=== PATIENT | male | born 1935 | race Caucasian/White ===

== ENCOUNTER 2016-12-20 07:08 | Emergency (ER) | payer MEDICARE, BC ==
[2016-12-20] MEDS ORDERED: Sodium Chloride 0.9% 500 ML IV SCH (07:30)
--- NOTE | 2016-12-20 07:31 | EDM.PDOC ---
ED HPI GENERAL MEDICAL PROBLEM - General Chief Complaint: Abdominal Pain Stated Complaint: SIDE PAIN Time Seen by Provider: 12/20/16 07:30 Source of Information: Reports: Patient - History of Present Illness INITIAL COMMENTS - FREE TEXT/NARRATIVE: HISTORY AND PHYSICAL: History of present illness: [] Patient presents with low-grade left lower quadrant pain 2/10 nonradiating for one week, associated with fever nausea vomiting chills sweats no chest pain shortness breath headache dizziness or palpitation no bowel or urine symptoms Denies blood in the stool Last colonoscopy 4 years prior without findings Review of systems: As per history of present illness and below otherwise all systems reviewed and negative. Past medical history: As per history of present illness and as reviewed below otherwise noncontributory. Surgical history: As per history of present illness and as reviewed below otherwise noncontributory. Social history: No reported history of drug or alcohol abuse. Family history: As per history of present illness and as reviewed below otherwise noncontributory. Physical exam: HEENT: Atraumatic, normocephalic, pupils reactive, negative for conjunctival pallor or scleral icterus, mucous membranes moist, throat clear, neck supple, nontender, trachea midline. Lungs: Clear to auscultation, breath sounds equal bilaterally, chest nontender. Heart: S1S2, regular, negative for clicks, rubs, or JVD. Abdomen: Soft, nondistended, nontender. Negative for masses or hepatosplenomegaly. Negative for costovertebral tenderness. Pelvis: Stable nontender. Genitourinary: Deferred. Rectal: No mass scar or lesion external exam, internal exam again no mass scarred lesion guaiac is negative Extremities: Atraumatic, negative for cords or calf pain. Neurovascular unremarkable. Neuro: Awake, alert, oriented. Cranial nerves II through XII unremarkable. Cerebellum unremarkable. Motor and sensory unremarkable throughout. Exam nonfocal. Diagnostics: [] Lab as below CT abdomen pelvis with Guaiac-negative Therapeutics: [] 500 cc bolus normal saline Cipro 500 mg by mouth twice a day #20 no refill Impression: [] Nonspecific Abdominal pain, left lower quadrant Clinical diverticulitis Definitive disposition and diagnosis as appropriate pending reevaluation and review of above. abdomen Pain Score (Numeric/FACES): 2 - Related Data Allergies Allergy/AdvReac Type Severity Reaction Status Date / Time No Known Allergies Allergy Verified 12/20/16 07:17 Home Meds: Home Meds Hydrochlorothiazide 12.5 mg PO DAILY 03/16/15 [History] Lisinopril 10 mg PO DAILY 03/16/15 [History] Sertraline HCl [Zoloft] 100 mg PO DAILY 03/16/15 [History] Tadalafil [Cialis] 20 mg PO ASDIRECTED PRN 03/16/15 [History] Tamsulosin HCl [Flomax] 0.4 mg PO DAILY 03/16/15 [History] Past Medical History Other HEENT History: wears glasses Other Genitourinary History: Prostate hypertrophy - Past Surgical History Other Musculoskeletal Surgeries/Procedures:: melodie TKA Social & Family History - Tobacco Use Smoking Status *Q: Never Smoker - Recreational Drug Use Recreational Drug Use: No ED ROS GENERAL - Review of Systems Review Of Systems: ROS reveals no pertinent complaints other than HPI. ED EXAM, GENERAL - Physical Exam Exam: See Below Course - Vital Signs Last Recorded V/S: Last Vital Signs Temp 36.0 C 12/20/16 08:43 Pulse 51 L 12/20/16 08:43 Resp 14 12/20/16 08:43 BP 156/69 H 12/20/16 08:43 Pulse Ox 96 12/20/16 08:43 - Orders/Labs/Meds Orders: Active Orders 24 hr Category Date Time Status Abdomen Pelvis w Cont [CT] Stat Exams 12/20/16 07:29 Taken Guaiac [OCCULT BLOOD DIAGNOSTIC] [OP] Stat Lab 12/20/16 08:25 Uncollected Sodium Chloride 0.9% [Normal Saline] 500 ml Med 12/20/16 07:30 Active IV STAT Medication Orders Sodium Chloride (Normal Saline) 500 mls @ 999 mls/hr IV STAT RAMIRO Last Admin: 12/20/16 07:55 Dose: 999 mls/hr Labs: Laboratory Tests 12/20/16 12/20/16 12/20/16 Range/Units 06:30 07:21 07:51 WBC 4.06 (4.0-11.0) K/uL RBC 3.97 L (4.50-5.90) M/uL Hgb 12.1 L (13.0-17.0) g/dL Hct 37.8 L (38.0-50.0) % MCV 95.2 (80.0-98.0) fL MCH 30.5 (27.0-32.0) pg MCHC 32.0 (31.0-37.0) g/dL RDW Std Deviation 53.0 (28.0-62.0) fl RDW Coeff of Sherine 15 (11.0-15.0) % Plt Count 151 (150-400) K/uL MPV 10.10 (7.40-12.00) fL Neut % (Auto) 64.8 (48.0-80.0) % Lymph % (Auto) 24.4 (16.0-40.0) % [place] % (Auto) 6.4 (0.0-15.0) % Eos % (Auto) 3.4 (0.0-7.0) % Baso % (Auto) 1.0 (0.0-1.5) % Neut # (Auto) 2.6 (1.4-5.7) K/uL Lymph # (Auto) 1.0 (0.6-2.4) K/uL [place] # (Auto) 0.3 (0.0-0.8) K/uL Eos # (Auto) 0.1 (0.0-0.7) K/uL Baso # (Auto) 0.0 (0.0-0.1) K/uL Nucleated RBC % 0.0 /100WBC Nucleated RBCs # 0 K/uL Sodium (136-146) mmol/L Potassium (3.5-5.1) mmol/L Chloride (98-110) mmol/L Carbon Dioxide (21-31) mmol/L BUN (6.0-23.0) mg/dL Creatinine (0.6-1.5) mg/dL Est Cr Clr Drug Dosing mL/min Estimated GFR (MDRD) ml/min Glucose (60-110) mg/dL Calcium (8.8-10.8) mg/dL Total Bilirubin (0.1-1.5) mg/dL AST (5-40) IU/L ALT (8-54) IU/L Alkaline Phosphatase (40-150) Troponin I < 0.10 (0.0-0.29) NG/ML C-Reactive Protein (0.0-0.5) mg/dL Total Protein (6.0-8.0) g/dL Albumin (3.4-4.8) g/dL Globulin (2.0-3.5) g/dL Albumin/Globulin Ratio (1.3-2.8) Amylase (10-90) U/L Lipase (7-80) U/L Urine Color YELLOW Urine Appearance CLEAR Urine pH 5.5 (5.0-8.0) Ur Specific [place] 1.020 (1.001-1.035) Urine Protein NEGATIVE (NEGATIVE) mg/dL Urine Glucose (UA) NEGATIVE (NEGATIVE) mg/dL Urine Ketones NEGATIVE (NEGATIVE) mg/dL Urine Occult Blood NEGATIVE (NEGATIVE) Urine Nitrite NEGATIVE (NEGATIVE) Urine Bilirubin NEGATIVE (NEGATIVE) Urine Urobilinogen 0.2 (<2.0) EU/dL Ur Leukocyte Esterase NEGATIVE (NEGATIVE) Urine RBC 0-1 (0-2/HPF) Urine WBC 0-1 (0-5/HPF) Ur Squamous Epith Cells FEW Urine Bacteria NOT SEEN (NEGATIVE) Hyaline Casts 0-2 (0-2/LPF) Urine Mucus LIGHT (NONE-MOD) 12/20/16 12/20/16 Range/Units 07:51 07:51 WBC (4.0-11.0) K/uL RBC (4.50-5.90) M/uL Hgb (13.0-17.0) g/dL Hct (38.0-50.0) % MCV (80.0-98.0) fL MCH (27.0-32.0) pg MCHC (31.0-37.0) g/dL RDW Std Deviation (28.0-62.0) fl RDW Coeff of Sherine (11.0-15.0) % Plt Count (150-400) K/uL MPV (7.40-12.00) fL Neut % (Auto) (48.0-80.0) % Lymph % (Auto) (16.0-40.0) % [place] % (Auto) (0.0-15.0) % Eos % (Auto) (0.0-7.0) % Baso % (Auto) (0.0-1.5) % Neut # (Auto) (1.4-5.7) K/uL Lymph # (Auto) (0.6-2.4) K/uL [place] # (Auto) (0.0-0.8) K/uL Eos # (Auto) (0.0-0.7) K/uL Baso # (Auto) (0.0-0.1) K/uL Nucleated RBC % /100WBC Nucleated RBCs # K/uL Sodium 139 (136-146) mmol/L Potassium 4.2 (3.5-5.1) mmol/L Chloride 108 (98-110) mmol/L Carbon Dioxide 24 (21-31) mmol/L BUN 20 (6.0-23.0) mg/dL Creatinine 1.2 (0.6-1.5) mg/dL Est Cr Clr Drug Dosing 56.72 mL/min Estimated GFR (MDRD) 58.0 ml/min Glucose 101 (60-110) mg/dL Calcium 8.9 (8.8-10.8) mg/dL Total Bilirubin 1.2 (0.1-1.5) mg/dL AST 14 (5-40) IU/L ALT 13 (8-54) IU/L Alkaline Phosphatase 72 (40-150) Troponin I (0.0-0.29) NG/ML C-Reactive Protein 0.36 (0.0-0.5) mg/dL Total Protein 6.3 (6.0-8.0) g/dL Albumin 3.7 (3.4-4.8) g/dL Globulin 2.6 (2.0-3.5) g/dL Albumin/Globulin Ratio 1.4 (1.3-2.8) Amylase 56 (10-90) U/L Lipase 33 (7-80) U/L Urine Color Urine Appearance Urine pH (5.0-8.0) Ur Specific [place] (1.001-1.035) Urine Protein (NEGATIVE) mg/dL Urine Glucose (UA) (NEGATIVE) mg/dL Urine Ketones (NEGATIVE) mg/dL Urine Occult Blood (NEGATIVE) Urine Nitrite (NEGATIVE) Urine Bilirubin (NEGATIVE) Urine Urobilinogen (<2.0) EU/dL Ur Leukocyte Esterase (NEGATIVE) Urine RBC (0-2/HPF) Urine WBC (0-5/HPF) Ur Squamous Epith Cells Urine Bacteria (NEGATIVE) Hyaline Casts (0-2/LPF) Urine Mucus (NONE-MOD) Meds: Medications Generic Name Dose Route Start Last Admin Trade Name Freq PRN Reason Stop Dose Admin Sodium Chloride 500 mls @ 999 mls/hr 12/20/16 07:30 12/20/16 07:55 Normal Saline IV 999 mls/hr STAT RAMIRO Administration Discontinued Medications Generic Name Dose Route Start Last Admin Trade Name Freq PRN Reason Stop Dose Admin Iopamidol 100 ml 12/20/16 08:26 12/20/16 08:36 Isovue Multipack-370 (76%) IVPUSH 12/20/16 08:27 100 ml ONETIME STA Administration Departure - Departure Time of Disposition: 09:13 Disposition: Home, Self-Care 01 Condition: good Clinical Impression: Abdominal pain Referrals: Corey Archuleta MD [Primary Care Provider] - Forms: ED Department Discharge Additional Instructions: Return if symptoms persist or worsen Medications as prescribed Followup with primary care in 2 weeks The following information is given to patients seen in the emergency department who are being discharged to home. This information is to outline your options for follow-up care. We provide all patients seen in our emergency department with a follow-up referral. The need for follow-up, as well as the timing and circumstances, are variable depending upon the specifics of your emergency department visit. If you don't have a primary care physician on staff, we will provide you with a referral. We always advise you to contact your personal physician following an emergency department visit to inform them of the circumstance of the visit and for follow-up with them and/or the need for any referrals to a consulting specialist. The emergency department will also refer you to a specialist when appropriate. This referral assures that you have the opportunity for follow-up care with a specialist. All of these measure are taken in an effort to provide you with optimal care, which includes your follow-up. Under all circumstances we always encourage you to contact your private physician who remains a resource for coordinating your care. When calling for follow-up care, please make the office aware that this follow-up is from your recent emergency room visit. If for any reason you are refused follow-up, please contact the [facility] emergency department at and asked to speak to the emergency department charge nurse. - My Orders Last 24 Hours: My Active Orders 12/20/16 07:29 Abdomen Pelvis w Cont [CT] Stat 12/20/16 07:30 Sodium Chloride 0.9% [Normal Saline] 500 ml IV STAT 12/20/16 08:25 Guaiac [OCCULT BLOOD DIAGNOSTIC] [OP] Stat - Assessment/Plan Last 24 Hours: My Active Orders 12/20/16 07:29 Abdomen Pelvis w Cont [CT] Stat 12/20/16 07:30 Sodium Chloride 0.9% [Normal Saline] 500 ml IV STAT 12/20/16 08:25 Guaiac [OCCULT BLOOD DIAGNOSTIC] [OP] Stat
[2016-12-20] MEDS ORDERED: Iopamidol 755 MG/ML 500 ML Multipack Bottle IVPUSH STA (08:26)
[2016-12-20 09:50] VITALS: BP 154/62
--- NOTE | 2016-12-20 16:00 | CT ---
EXAM DATE: 12/20/16 PATIENT'S AGE: 81 Patient: ILDA TELLES Facility: [place], [place] Site . Site : [id number] Study: CT Abdomen/Pelvis [id number]/[id number] 8:53:04 AM Ordering Physician: Yon Jett Final Report: INDICATION: LLQ pain HISTORY: Left lower quadrant abdominal pain. COMPARISON: None. TECHNIQUE: CT of the abdomen and pelvis. 100 cc of Isovue-370 IV. Coronal/sagittal reconstruction images. FINDINGS: Lung bases: There is no pleural or pericardial effusion. The heart size is normal. Lung bases demonstrate ground-glass opacities in both lower lobes, likely dependent atelectasis. 2 mm pulmonary nodule in the right lower lobe on image 4, series 201, is of doubtful significance. No honeycomb formation. No basilar pneumothorax. Abdomen/pelvis: No solid hepatic mass. Hepatic morphology is normal. No inflammatory changes about the gallbladder. No adrenal mass. Mild perinephric stranding. No solid renal mass. Spleen size is normal. No pancreatic mass or pancreatic duct dilation. No glandular atrophy. Urinary bladder and prostate are within normal limits. There is no wall thickening within the small bowel or colon. There is colonic diverticulosis. No associated inflammatory changes. No small bowel or colonic obstruction. No abdominal aortic aneurysm. Visceral artery branches are patent. Nonenlarged retroperitoneal lymph nodes. There is no abdominal or pelvic lymphadenopathy by size criteria. The bone windows demonstrate no lytic or blastic bone lesions. The alignment is preserved. There are degenerative changes at the endplates, and apophyseal joints. IMPRESSION: 1. There are no acute findings seen to explain the patient`s abdominal pain. 2. There is colonic diverticulosis, but no inflammatory changes. No perienteric edema, mucosal hyper enhancement, or mural stratification. 3. There is no obstructive urolith, hydronephrosis, or perinephric fluid collection. 4. No abdominal or pelvic lymphadenopathy. 5. No inflammatory changes about the appendix. Dictated by Donato Bear MD @ 12/20/2016 9:07:35 AM Dictated by: Donato Bear MD @ 12/20/2016 09:07:47 (Electronic Signature) Report Signed by Proxy. GRE[facility] HEALTH SYSTEMJamar
== END 2016-12-20 09:40 | disposition home or self-care (01) ==
LOC: MW.ED 07:08
DX: K57.30 Diverticulosis of large intestine without perforation or abscess without bleeding (principal); N40.0 Benign prostatic hyperplasia without lower urinary tract symptoms; Z96.653 Presence of artificial knee joint, bilateral; Z79.899 Other long term (current) drug therapy
CPT/HCPCS: 36415; 74177; 80053; 81001; 82150; 83690; 84484; 85025; 86140; 96360; 99284; J7040; Q9967; 99283

== ENCOUNTER 2021-05-28 15:22 | Emergency (ER) | payer MEDICARE, BC ==
[2021-05-28] MEDS ORDERED: Diphtheria,Pertussis(Acell),Tetanus Vaccine 0.5 ML Syringe IM ONE (18:12)
--- NOTE | 2021-05-28 18:45 | EDM.PDOC ---
ED HPI GENERAL MEDICAL PROBLEM - General Chief Complaint: Laceration Stated Complaint: CUT FINGER ON RIGHT HAND Time Seen by Provider: 05/28/21 17:42 Source of Information: Reports: Patient History Limitations: Reports: No Limitations - History of Present Illness INITIAL COMMENTS - FREE TEXT/NARRATIVE: HISTORY AND PHYSICAL: History of present illness: Patient is an 85-year-old male who presents emergency room today with concern of an abrasion to his right hand pointer finger that he states he cannot get to stop bleeding. Patient states that he is on Eliquis for atrial fibrillation and states that this is why he is having a hard time getting it to stop. Patient states that he is applied pressure to the area and held it over his head but has not been able to get it to stop. Patient states that he was using a cheese grater and caught the tip of his finger and sliced off a small piece of skin. Patient states that he is not up-to-date on tetanus and would like to update this today. Denies any other symptoms or concerns. Patient denies fever, chills, chest pain, shortness of breath, or cough. Denies headache, neck stiff ness, change in vision, syncope, or near syncope. Denies nausea, vomiting, abdominal pain, diarrhea, constipation, or dysuria. Has not noted any blood in urine or stool. Patient has been eating and drinking appropriately. Review of systems: As per history of present illness and below otherwise all systems reviewed and negative. Past medical history: As per history of present illness and as reviewed below otherwise noncontributory. Surgical history: As per history of present illness and as reviewed below otherwise noncontributory. Social history: See social history for further information Family history: As per history of present illness and as reviewed below otherwise noncontributory. Physical exam: General: Patient is alert, oriented, and in no acute distress. Patient sitting comfortably on exam table. Vitals stable and reviewed by me. HEENT: Atraumatic, normocephalic, pupils equal and reactive bilaterally, negative for conjunctival pallor or scleral icterus, mucous membranes moist, TMs normal bilaterally, throat clear, neck supple, nontender, trachea midline. No drooling or trismus noted. No meningeal signs. No hot potato voice noted. Lungs: Clear to auscultation, breath sounds equal bilaterally, chest nontender. Heart: S1S2, regular rate and rhythm without overt murmur Abdomen: Soft, nondistended, nontender. Negative for masses or hepatosplenomegaly. Negative for costovertebral tenderness. Pelvis: Stable nontender. Genitourinary: Deferred. Rectal: Deferred. Skin: Intact, warm, dry. No lesions or rashes noted. Extremities: There is a subcutaneous abrasion of the right hand distal pointer finger with oozing of blood noted. Patient does have full range of motion of the finger without deficit. Intact sensation to light and deep touch of the digit and complete right upper extremity. Radial pulse grossly intact with capillary refill less than 2 seconds. Otherwise, atraumatic, negative for cords or calf pain. Neurovascular unremarkable. Neuro: Awake, alert, oriented. Cranial nerves II through XII unremarkable. Cerebellum unremarkable. Motor and sensory unremarkable throughout. Exam nonfocal. Notes: Patient is hypertensive today in the emergency room. I did offer basic lab work to assess for his blood pressure, however, he declines at this time stating that he feels anxious and feels his blood pressure elevation is related to this. All risks versus benefits discussed with patient and expresses understanding. Patient is an 85-year-old male who presents emergency room today with concern of right hand pointer finger injury that occurred just prior to arrival to the emergency room. Upon arrival to the ED, patient is hypertensive, otherwise vitally stable and reviewed by me. On exam, patient does have a subcutaneous abrasion of missing skin of his right hand still pointer finger that is continually oozing blood. A finger tourniquet was applied to completely assess the abrasion. There is no arterial bleed, however, the area of missing skin does have capillaries that are continuing ooze. A Surgicel pressure dressing was originally applied to the area, however, patient bled through the bandage. Patient's incision was then soaked in TXA, however, this did not slow the bl eeding. 1Cc of lidocaine used to anesthetize the area, saline irrigation and chlorhexidine used to clean the wound, then Electrocautery was used with hemostasis. Sterile dressing applied by nursing staff. Reevaluation of the bandage shows no continuing bleeding. Strict return precautions thoroughly discussed with patient. Discussed importance for follow-up with a primary care provider. Voices understanding and is agreeable to plan of care. Denies any further questions or concerns at this time. Diagnostics: None Therapeutics: Tdap, Surgicel pressure dressing, TXA, electrocautery Prescription: None Impression: Finger abrasion with hemorrhage, right, second digit Plan: 1. Follow-up with a primary care provider as discussed. Return to the ED as needed and as discussed. Definitive disposition and diagnosis as appropriate pending reevaluation and review of above. Right Finger-Index Pain Score (Numeric/FACES): 2 - Related Data Allergies Allergy/AdvReac Type Severity Reaction Status Date / Time No Known Allergies Allergy Verified 05/28/21 17:48 Home Meds: Home Meds Hydrochlorothiazide 12.5 mg PO DAILY 03/16/15 [History] Lisinopril 10 mg PO DAILY 03/16/15 [History] Sertraline HCl [Zoloft] 100 mg PO DAILY 03/16/15 [History] Tamsulosin HCl [Flomax] 0.4 mg PO DAILY 03/16/15 [History] tadalafiL [Cialis] 20 mg PO ASDIRECTED PRN 03/16/15 [History] Past Medical History HEENT History: Reports: Cataract Other HEENT History: wears glasses Cardiovascular History: Reports: Hypertension Other Genitourinary History: Prostate hypertrophy Musculoskeletal History: Reports: Osteoarthritis Neurological History: Reports: Vertigo Psychiatric History: Reports: Depression Endocrine/Metabolic History: Reports: Obesity/BMI 30+ - Infectious Disease History Infectious Disease History: Reports: Chicken Pox, Measles - Past Surgical History Musculoskeletal Surgical History: Reports: Knee Replacement Other Musculoskeletal Surgeries/Procedures:: melodie TKA Social & Family History - Family History Family Medical History: No Pertinent Family History - Tobacco Use Tobacco Use Status *Q: Never Tobacco User - Caffeine Use Caffeine Use: Reports: None - Recreational Drug Use Recreational Drug Use: No ED ROS GENERAL - Review of Systems Review Of Systems: Comprehensive ROS is negative, except as noted in HPI. ED EXAM, SKIN/RASH Exam: See Below (See dictation) Course - Vital Signs Last Recorded V/S: Last Vital Signs Temp 97.8 F 05/28/21 17:51 Pulse 53 L 05/28/21 18:57 Resp 20 05/28/21 18:57 BP 214/76 H 05/28/21 18:57 Pulse Ox 97 05/28/21 18:57 - Orders/Labs/Meds Meds: Medications Discontinued Medications Generic Name Dose Route Start Last Admin Trade Name Coretta PRN Reason Stop Dose Admin Diphtheria/Tetanus/Acell Pertussis 0.5 ml 05/28/21 18:12 05/28/21 18:38 Diphtheria,Pertussis(Acell),Tetanus Vaccine 0.5 Ml Syringe IM 05/28/21 18:13 0.5 ml .ONCE ONE Administration Lidocaine HCl 5 ml 05/28/21 19:00 05/28/21 19:17 Lidocaine 1% 5 Ml Sdv INJECT 05/28/21 19:01 5 ml ONETIME ONE Administration Lidocaine HCl Confirm 05/28/21 19:02 05/28/21 19:17 Lidocaine 1% 5 Ml Sdv Administered 05/28/21 19:03 Not Given Dose 5 ml .ROUTE .STK-MED ONE Tranexamic Acid 1,000 mg 05/28/21 18:13 05/28/21 18:38 Tranexamic Acid 1,000 Mg/10 Ml Amp TOP 05/28/21 18:22 1,000 mg ONETIME ONE Administration Departure - Departure Time of Disposition: 18:44 Disposition: Home, Self-Care 01 Clinical Impression: Finger abrasion, Bleeding from wound - Discharge Information Instructions: Abrasion, [id number] Referrals: Corey Archuleta MD [Primary Care Provider] - Forms: ED Department Discharge Additional Instructions: The following information is given to patients seen in the emergency department who are being discharged to home. This information is to outline your options for follow-up care. We provide all patients seen in our emergency department with a follow-up referral. The need for follow-up, as well as the timing and circumstances, are variable depending upon the specifics of your emergency department visit. If you don't have a primary care physician on staff, we will provide you with a referral. We always advise you to contact your personal physician following an emergency department visit to inform them of the circumstance of the visit and for follow-up with them and/or the need for any referrals to a consulting specialist. The emergency department will also refer you to a specialist when appropriate. This referral assures that you have the opportunity for follow-up care with a specialist. All of these measure are taken in an effort to provide you with optimal care, which includes your follow-up. Under all circumstances we always encourage you to contact your private physician who remains a resource for coordinating your care. When calling for follow-up care, please make the office aware that this follow-up is from your recent emergency room visit. If for any reason you are refused follow-up, please contact the [facility] Emergency Department at and asked to speak to the emergency department charge nurse. [facility] [address] [place] [address] [facility] [address] [place] [id number] 1. Follow-up with a primary care provider as discussed. Return to the ED as needed and as discussed. Sepsis Event Note (ED) - Focused Exam Vital Signs: Vital Signs Temp Pulse Resp BP Pulse Ox 05/28/21 18:57 53 L 20 214/76 H 97 05/28/21 17:51 97.8 F 86 18 220/65 H 98
[2021-05-28 18:57] VITALS: BP 214/76; PULSE 53
== END 2021-05-28 19:27 | disposition home or self-care (01) ==
LOC: MW.ED 15:22
DX: S60.410A Abrasion of right index finger, initial encounter (principal); Z23 Encounter for immunization; R58 Hemorrhage, not elsewhere classified; I10 Essential (primary) hypertension; E66.9 Obesity, unspecified; Z68.34 Body mass index [BMI] 34.0-34.9, adult; W27.4XXA Contact with kitchen utensil, initial encounter
CPT/HCPCS: 12001; 90471; 90715; 99282-25

== ENCOUNTER 2023-08-14 09:11 | Emergency (ER) | payer MEDICARE, BC ==
[2023-08-14 09:43] LABS: APPEARANCE,URINE SLT CLOUDY; BILIRUBIN,URINE NEGATIVE (NEGATIVE); COLOR,URINE BROWN; GLUCOSE,URINE NEGATIVE (NEGATIVE); KETONES,URINE NEGATIVE (NEGATIVE); LEUKOCYTE ESTERASE,URINE NEGATIVE (NEGATIVE); NITRITE,URINE NEGATIVE (NEGATIVE); OCCULT BLOOD,URINE LARGE (NEGATIVE); PH,URINE 6.5 (5.0-8.0); PROTEIN,URINE TRACE mg/dL (NEGATIVE)
[2023-08-14 10:17] LABS: RBC,URINE TOO NUMEROUS TO CT (0-2/HPF)
[2023-08-14 10:18] LABS: BASOPHILS ABSOLUTE AUTO 0.02 K/uL (0.00-0.20); BASOPHILS PERCENT AUTO 0.5 % (0.0-1.0); EOSINOPHILS ABSOLUTE AUTO 0.03 K/uL (0.00-0.45); EOSINOPHILS PERCENT AUTO 0.7 % (0.0-6.0); HEMATOCRIT 36.8 % (42.0-52.0); HEMOGLOBIN 12.1 g/dL (14.0-18.0); IMMATURE GRAN ABSOLUTE AUTO 0.02 K/uL (0.00-0.05); IMMATURE GRAN PERCENT AUTO 0.5 % (0.0-0.4); LYMPHOCYTES ABSOLUTE AUTO 1.07 K/uL (1.00-4.80); LYMPHOCYTES PERCENT AUTO 24.4 % (24.0-44.0); MEAN CORPUSCULAR HEMOGLOBIN 32.7 pg (28.0-32.0); MEAN CORPUSCULAR HGB CONC 32.9 g/dL (32.0-36.0); MEAN CORPUSCULAR VOLUME 99.5 fL (83.0-99.0); MEAN PLATELET VOLUME 10.5 fL (9.4-12.4); MONOCYTES PERCENT AUTO 9.1 % (0.0-8.0); NEUTROPHILS ABSOLUTE AUTO 2.84 K/uL (1.80-7.70); NEUTROPHILS PERCENT AUTO 64.8 % (41.0-71.0); PLATELET COUNT,PLT 156 K/uL (150-400); WHITE BLOOD CELL COUNT,WBC 4.38 K/uL (3.9-11.3)
[2023-08-14 10:41] LABS: ALBUMIN 3.3 g/dL (3.4-5.0); BILIRUBIN TOTAL 1.7 mg/dL (0.2-1.0); CALCIUM 8.6 mg/dL (8.5-10.1); CARBON DIOXIDE,CO2 27.7 mmol/L (21.0-32.0); CREATININE 1.3 mg/dL (0.8-1.3); EST CRCL DRUG DOSING (CG) 46.94 mL/min; POTASSIUM,K 4.7 mmol/L (3.5-5.1); PROTEIN TOTAL,TP 6.6 g/dL (6.4-8.2)
[2023-08-14] MEDS ORDERED: Iopamidol 755 MG/ML 500 ML Multipack Bottle IVPUSH STA (11:48)
[2023-08-14 13:42] VITALS: BP 148/87; PULSE 95
== END 2023-08-14 13:41 | disposition home or self-care (01) ==
LOC: MW.ED 09:11
DX: R31.9 Hematuria, unspecified (principal); I10 Essential (primary) hypertension; E78.00 Pure hypercholesterolemia, unspecified; E66.9 Obesity, unspecified; Z68.35 Body mass index [BMI] 35.0-35.9, adult; Z79.01 Long term (current) use of anticoagulants; Z79.899 Other long term (current) drug therapy
CPT/HCPCS: 36415; 70450; 73070; 74177; 80053; 81001; 85025; 99284; Q9967

== ENCOUNTER 2023-12-15 04:19 | Emergency (ER) | payer MEDICARE, BC ==
[2023-12-15 04:31] VITALS: BP 149/79; PULSE 78
== END 2023-12-15 04:59 | disposition home or self-care (01) ==
LOC: MW.ED 04:19
DX: S70.12XA Contusion of left thigh, initial encounter (principal); S30.0XXA Contusion of lower back and pelvis, initial encounter; I10 Essential (primary) hypertension; E78.00 Pure hypercholesterolemia, unspecified; E66.9 Obesity, unspecified; Z79.899 Other long term (current) drug therapy; Z79.01 Long term (current) use of anticoagulants; Z68.37 Body mass index [BMI] 37.0-37.9, adult; Z79.82 Long term (current) use of aspirin; W18.30XA Fall on same level, unspecified, initial encounter
CPT/HCPCS: 99282; 99283

== ENCOUNTER 2024-08-09 11:03 | Emergency (ER) | payer MEDICARE, BC ==
[2024-08-09 12:00] LABS: BASOPHILS ABSOLUTE AUTO 0.03 K/uL (0.00-0.20); BASOPHILS PERCENT AUTO 0.7 % (0.0-1.0); EOSINOPHILS ABSOLUTE AUTO 0.03 K/uL (0.00-0.45); EOSINOPHILS PERCENT AUTO 0.7 % (0.0-6.0); HEMATOCRIT 39.7 % (42.0-52.0); HEMOGLOBIN 12.7 g/dL (14.0-18.0); IMMATURE GRAN ABSOLUTE AUTO 0.02 K/uL (0.00-0.05); IMMATURE GRAN PERCENT AUTO 0.4 % (0.0-0.4); LYMPHOCYTES ABSOLUTE AUTO 1.31 K/uL (1.00-4.80); LYMPHOCYTES PERCENT AUTO 29.2 % (24.0-44.0); MEAN CORPUSCULAR HEMOGLOBIN 32.9 pg (28.0-32.0); MEAN CORPUSCULAR VOLUME 102.8 fL (83.0-99.0); MEAN PLATELET VOLUME 10.9 fL (9.4-12.4); MONOCYTES ABSOLUTE AUTO 0.38 K/uL (0.00-0.80); MONOCYTES PERCENT AUTO 8.5 % (0.0-8.0); NEUTROPHILS ABSOLUTE AUTO 2.72 K/uL (1.80-7.70); NEUTROPHILS PERCENT AUTO 60.5 % (41.0-71.0); PLATELET COUNT,PLT 141 K/uL (150-400); RED BLOOD CELL COUNT 3.86 M/uL (4.52-5.90); WHITE BLOOD CELL COUNT,WBC 4.49 K/uL (3.9-11.3)
[2024-08-09] MEDS: Bacitracin Oint 1 GM U/D Packet TOP ONE (12:03)
[2024-08-09 12:25] LABS: A/G RATIO 1.2 (0.9-1.6); ALBUMIN 3.6 g/dL (3.4-5.0); BILIRUBIN TOTAL 2.2 mg/dL (0.2-1.0); CALCIUM 8.7 mg/dL (8.5-10.1); CARBON DIOXIDE,CO2 29.4 mmol/L (21.0-32.0); CREATININE 1.3 mg/dL (0.8-1.3); EST CRCL DRUG DOSING (CG) 46.04 mL/min; POTASSIUM,K 4.6 mmol/L (3.5-5.1); PROTEIN TOTAL,TP 6.7 g/dL (6.4-8.2)
[2024-08-09 12:41] VITALS: BP 182/91; PULSE 60
[2024-08-09] MEDS: Acetaminophen 325 MG Tab PO ONE (12:41)
== END 2024-08-09 12:51 | disposition home or self-care (01) ==
LOC: MW.ED 11:03
DX: S09.90XA Unspecified injury of head, initial encounter (principal); S00.81XA Abrasion of other part of head, initial encounter; I10 Essential (primary) hypertension; E78.00 Pure hypercholesterolemia, unspecified; E66.9 Obesity, unspecified; Z79.82 Long term (current) use of aspirin; Z79.899 Other long term (current) drug therapy; Z79.01 Long term (current) use of anticoagulants; Z75.8 Other problems related to medical facilities and other health care; Z68.36 Body mass index [BMI] 36.0-36.9, adult; W01.198A Fall on same level from slipping, tripping and stumbling with subsequent striking against other object, initial encounter; Y92.22 Religious institution as the place of occurrence of the external cause
CPT/HCPCS: 36415; 70450; 72125; 80053; 85025; 93005; 99284; A9270; 93010